=== PATIENT | female | born 1945 | race African-American/Black ===

== ENCOUNTER 2018-12-05 19:56 | Emergency (ER) | payer MEDICAID | END 2018-12-05 20:28 | disposition home or self-care (01) | LOC: NAV ERS 19:56 | DX: T43.591A Poisoning by other antipsychotics and neuroleptics, accidental (unintentional), initial encounter (principal); E11.9 Type 2 diabetes mellitus without complications; I10 Essential (primary) hypertension; F20.0 Paranoid schizophrenia; Z79.899 Other long term (current) drug therapy; Z79.84 Long term (current) use of oral hypoglycemic drugs | CPT/HCPCS: 93005 ==